=== PATIENT | female | born 1990 | race Caucasian/White ===

== ENCOUNTER → 2017-05-25 13:54 | Outpatient (CLI) | payer BC, SELFPAY ==
[2017-05-29 12:01] LABS: HPV Reflexed? NOT INDICATED
== END ==
PROVIDERS: Family Provider Family Medicine; PCP Family Medicine; Visit Provider Obstetrics & Gynecology
DX: Z12.4 Encounter for screening for malignant neoplasm of cervix (principal)
CPT/HCPCS: 88175; G0145

== ENCOUNTER 2019-12-14 12:23 | Outpatient (RCR) | payer BC, SELFPAY ==
[2019-03-18 16:30] VITALS: BMI 25.4
== END 2019-12-28 23:59 ==
LOC: EMPH 12:23
PROVIDERS: PCP Family Medicine; Visit Provider Family Medicine Geriatric Medicine
DX: Z11.59 Encounter for screening for other viral diseases (principal)
CPT/HCPCS: 87635; U0003

== ENCOUNTER 2020-01-26 08:48 | Outpatient (RCR) | payer BC, SELFPAY ==
[2019-03-18 16:30] VITALS: BMI 25.4
== END 2020-01-28 23:59 ==
LOC: EMPH 08:48
PROVIDERS: PCP Family Medicine; Referring Provider Family Medicine Geriatric Medicine; Visit Provider Family Medicine Geriatric Medicine
DX: Z03.818 Encounter for observation for suspected exposure to other biological agents ruled out (principal)
CPT/HCPCS: 87426

== ENCOUNTER 2020-02-22 09:31 | Outpatient (RCR) | payer BC, SELFPAY ==
[2019-03-18 16:30] VITALS: BMI 25.4
== END 2020-02-27 23:59 ==
LOC: EMPH 09:31
PROVIDERS: PCP Family Medicine; Referring Provider Family Medicine Geriatric Medicine; Visit Provider Family Medicine Geriatric Medicine
DX: Z03.818 Encounter for observation for suspected exposure to other biological agents ruled out (principal)
CPT/HCPCS: 87426

== ENCOUNTER 2020-03-28 14:07 | Outpatient (RCR) | payer BC, SELFPAY ==
[2019-03-18 16:30] VITALS: BMI 25.4
== END 2020-03-29 23:59 ==
LOC: EMPH 14:07
PROVIDERS: PCP Family Medicine; Referring Provider Family Medicine Geriatric Medicine; Visit Provider Family Medicine Geriatric Medicine
DX: Z03.818 Encounter for observation for suspected exposure to other biological agents ruled out (principal)
CPT/HCPCS: 87426

== ENCOUNTER 2020-04-18 12:29 | Outpatient (RCR) | payer BC, SELFPAY ==
[2019-03-18 16:30] VITALS: BMI 25.4
== END 2020-04-29 23:59 ==
LOC: EMPH 12:29
PROVIDERS: PCP Family Medicine; Referring Provider Family Medicine Geriatric Medicine; Visit Provider Family Medicine Geriatric Medicine
DX: Z03.818 Encounter for observation for suspected exposure to other biological agents ruled out (principal)
CPT/HCPCS: 87426

== ENCOUNTER 2020-05-25 09:48 | Outpatient (RCR) | payer BC, SELFPAY ==
[2019-03-18 16:30] VITALS: BMI 25.4
== END 2020-05-27 23:59 ==
LOC: EMPH 09:48
PROVIDERS: PCP Family Medicine; Referring Provider Family Medicine Geriatric Medicine; Visit Provider Family Medicine Geriatric Medicine
DX: Z03.818 Encounter for observation for suspected exposure to other biological agents ruled out (principal)
CPT/HCPCS: 87426

== ENCOUNTER 2020-06-20 09:41 | Outpatient (RCR) | payer BC, SELFPAY ==
[2019-03-18 16:30] VITALS: BMI 25.4
== END 2020-06-27 23:59 ==
LOC: EMPH 09:41
PROVIDERS: PCP Family Medicine; Referring Provider Family Medicine Geriatric Medicine; Visit Provider Family Medicine Geriatric Medicine
DX: Z03.818 Encounter for observation for suspected exposure to other biological agents ruled out (principal)
CPT/HCPCS: 87426

== ENCOUNTER 2020-07-20 10:35 | Outpatient (RCR) | payer BC, SELFPAY ==
[2019-03-18 16:30] VITALS: BMI 25.4
== END 2020-07-27 23:59 ==
LOC: EMPH 10:35
PROVIDERS: PCP Family Medicine; Referring Provider Family Medicine Geriatric Medicine; Visit Provider Family Medicine Geriatric Medicine
DX: Z03.818 Encounter for observation for suspected exposure to other biological agents ruled out (principal)
CPT/HCPCS: 87426

== ENCOUNTER 2020-08-23 10:30 | Outpatient (RCR) | payer BC, SELFPAY ==
[2019-03-18 16:30] VITALS: BMI 25.4
== END 2020-08-27 23:59 ==
LOC: EMPH 10:30
PROVIDERS: PCP Family Medicine; Referring Provider Family Medicine Geriatric Medicine; Visit Provider Family Medicine Geriatric Medicine
DX: Z03.818 Encounter for observation for suspected exposure to other biological agents ruled out (principal)
CPT/HCPCS: 87426

== ENCOUNTER 2020-09-26 14:02 | Outpatient (RCR) | payer BC, SELFPAY ==
[2019-03-18 16:30] VITALS: BMI 25.4
== END 2020-09-26 23:59 ==
LOC: EMPH 14:02
PROVIDERS: PCP Family Medicine; Referring Provider Family Medicine Geriatric Medicine; Visit Provider Family Medicine Geriatric Medicine
DX: Z03.818 Encounter for observation for suspected exposure to other biological agents ruled out (principal)
CPT/HCPCS: 87426

== ENCOUNTER 2020-10-19 10:43 | Outpatient (RCR) | payer BC, SELFPAY ==
[2019-03-18 16:30] VITALS: BMI 25.4
== END 2020-10-27 23:59 ==
LOC: EMPH 10:43
PROVIDERS: PCP Family Medicine; Referring Provider Family Medicine Geriatric Medicine; Visit Provider Family Medicine Geriatric Medicine
DX: Z03.818 Encounter for observation for suspected exposure to other biological agents ruled out (principal)
CPT/HCPCS: 87426

== ENCOUNTER → 2020-10-31 08:02 | Outpatient (CLI) | payer BC, SELFPAY ==
[2019-03-18 16:30] VITALS: BMI 25.4
--- NOTE | 2020-10-31 08:06 | US_ITS ---
EXAM: US ABDOMEN LIMITED, RIGHT UPPER QUADRANT CLINICAL INDICATION: ABD PAIN RUQ TECHNIQUE: Real-time ultrasound of the right upper quadrant with image documentation. This report was created using [employer] report generation technology. COMPARISON: None. FINDINGS: LIVER: Unremarkable. There is normal echotexture. No focal hepatic lesion. No intrahepatic biliary ductal dilation. GALLBLADDER: Unremarkable. No shadowing gallstone. No gallbladder wall thickening is demonstrated. No pericholecystic fluid. Negative sonographic Benson''s sign. COMMON BILE DUCT: Unremarkable as visualized. The proximal common bile duct is within normal limits for the patient''s age. PANCREAS: Unremarkable as visualized. No focal abnormality is demonstrated in the pancreas. No pancreatic ductal dilatation. RIGHT KIDNEY: Unremarkable. There is no hydronephrosis. No shadowing calculus. No focal lesion or perinephric collection is demonstrated. US/Abdomen Limited IMPRESSION: Normal right upper quadrant ultrasound. Electronically Signed: Jose Fernandez MD ([place]) at 8:38 EDT , Service support ,
== END ==
PROVIDERS: PCP Family Medicine; Referring Provider Family Medicine; Visit Provider Family Medicine
DX: R10.11 Right upper quadrant pain (principal)
CPT/HCPCS: 76705

== ENCOUNTER → 2020-11-18 | Outpatient (CLI) | payer BC, SELFPAY | END | disposition home or self-care (01) | LOC: LABSPEC 20:30 | PROVIDERS: PCP Family Medicine | DX: Z20.822 Contact with and (suspected) exposure to COVID-19 (principal) | CPT/HCPCS: 87635; U0005; U0003 ==

== ENCOUNTER 2020-11-27 12:24 | Outpatient (RCR) | payer BC, SELFPAY ==
[2019-03-18 16:30] VITALS: BMI 25.4
== END 2020-11-27 23:59 ==
LOC: EMPH 12:24
PROVIDERS: PCP Family Medicine; Referring Provider Family Medicine Geriatric Medicine; Visit Provider Family Medicine Geriatric Medicine
DX: Z03.818 Encounter for observation for suspected exposure to other biological agents ruled out (principal)
CPT/HCPCS: 87426

== ENCOUNTER 2020-12-27 13:10 | Outpatient (RCR) | payer BC, SELFPAY ==
[2020-11-28 00:28] VITALS: BMI 25.4
== END 2020-12-27 23:59 ==
LOC: EMPH 13:10
PROVIDERS: PCP Family Medicine; Referring Provider Family Medicine Geriatric Medicine; Visit Provider Family Medicine Geriatric Medicine
DX: Z03.818 Encounter for observation for suspected exposure to other biological agents ruled out (principal)
CPT/HCPCS: 87426

== ENCOUNTER 2021-01-17 13:55 | Outpatient (RCR) | payer BC, SELFPAY ==
[2020-12-28 00:23] VITALS: BMI 25.4
== END 2021-01-27 23:59 ==
LOC: EMPH 13:55
PROVIDERS: PCP Family Medicine; Referring Provider Family Medicine Geriatric Medicine; Visit Provider Family Medicine Geriatric Medicine
DX: Z03.818 Encounter for observation for suspected exposure to other biological agents ruled out (principal)
CPT/HCPCS: 87426

== ENCOUNTER → 2021-02-12 | Outpatient (CLI) | payer BC, SELFPAY ==
[2021-02-19 16:00] LABS: HPV Reflexed? NOT INDICATED
== END | disposition home or self-care (01) ==
PROVIDERS: PCP Family Medicine; Visit Provider Registered Nurse
DX: Z12.4 Encounter for screening for malignant neoplasm of cervix (principal)
CPT/HCPCS: 88175; G0145

== ENCOUNTER 2021-02-18 16:49 | Outpatient (RCR) | payer BC, SELFPAY ==
[2021-01-28 00:19] VITALS: BMI 25.4
== END 2021-02-26 23:59 ==
LOC: EMPH 16:49
PROVIDERS: PCP Family Medicine; Referring Provider Family Medicine Geriatric Medicine; Visit Provider Family Medicine Geriatric Medicine
DX: Z03.818 Encounter for observation for suspected exposure to other biological agents ruled out (principal)
CPT/HCPCS: 87426

== ENCOUNTER 2021-03-28 12:37 | Outpatient (RCR) | payer BC, SELFPAY ==
[2021-02-27 00:24] VITALS: BMI 25.4
== END 2021-03-29 23:59 ==
LOC: EMPH 12:37
PROVIDERS: PCP Family Medicine; Referring Provider Family Medicine Geriatric Medicine; Visit Provider Family Medicine Geriatric Medicine
DX: Z03.818 Encounter for observation for suspected exposure to other biological agents ruled out (principal)
CPT/HCPCS: 87426; 87635; U0003; U0005

== ENCOUNTER 2021-04-04 08:37 | Outpatient (RCR) | payer SELFPAY ==
[2021-03-30 00:23] VITALS: BMI 25.4
== END 2021-04-29 23:59 ==
LOC: EMPH 08:37
PROVIDERS: PCP Family Medicine; Referring Provider Family Medicine Geriatric Medicine; Visit Provider Family Medicine Geriatric Medicine
DX: Z03.818 Encounter for observation for suspected exposure to other biological agents ruled out (principal)
CPT/HCPCS: 87426

== ENCOUNTER 2021-04-16 09:54 | Outpatient (CLI) | payer OTHER, SELFPAY | END 2021-04-16 23:59 | disposition short-term general hospital (02) | PROVIDERS: PCP Family Medicine; Referring Provider Family Medicine; Visit Provider Family Medicine | DX: U07.1 COVID-19 (principal) | CPT/HCPCS: 87635; U0003; U0005 ==

== ENCOUNTER → 2023-12-28 | Outpatient (CLI) | payer OTHER, SELFPAY ==
[2024-01-05 09:09] LABS: HPV APTIMA, High Risk Negative (Negative)
== END | disposition home or self-care (01) ==
PROVIDERS: PCP Family Medicine; Referring Provider Nurse Practitioner Women's Health; Visit Provider Nurse Practitioner Women's Health
DX: Z12.4 Encounter for screening for malignant neoplasm of cervix (principal)
CPT/HCPCS: 87624; 88175; G0145

== ENCOUNTER → 2023-12-31 | Outpatient (CLI) | payer OTHER, SELFPAY ==
[2023-12-31 10:48] LABS: Cholesterol 198 mg/dL (200); Glucose 96 mg/dL (74-106); High Density Lipoprotein 57 mg/dL; T4 Free Direct 0.87 ng/dL (0.76-1.46); Triglycerides 84 mg/dL; Very Low Density Lipoprotein 17 mg/dL (5-40)
[2024-01-01 04:08] LABS: Thyroid Peroxidase AB < 9 IU/mL (0-34)
== END | disposition home or self-care (01) ==
LOC: PAVLAB 07:50
PROVIDERS: PCP Family Medicine; Referring Provider Nurse Practitioner Women's Health; Visit Provider Nurse Practitioner Women's Health
DX: Z13.220 Encounter for screening for lipoid disorders (principal); L65.9 Nonscarring hair loss, unspecified; Z13.21 Encounter for screening for nutritional disorder; Z13.1 Encounter for screening for diabetes mellitus; Z13.29 Encounter for screening for other suspected endocrine disorder
CPT/HCPCS: 36415; 80061; 82306; 82947; 84439; 84443; 86376

== ENCOUNTER → 2024-08-09 | Outpatient (CLI) | payer BC, SELFPAY ==
[2024-08-09 18:09] LABS: Hematocrit 35.5 % (37-47); Hemoglobin 12.1 g/dL (12.0-15.0); Mean Corp Hgb Conc 34.1 g/dL (32-36); Mean Corpuscular Hgb 30.8 pg (27.0-32.0); Mean Corpuscular Volume 90.3 fL (81-99); Mean Platelet Vol. 10.6 fl (6.2-12.0); Platelet Count 266 K/mm3 (150-450); RBC Distribution Width CV 12.8 % (11.6-14.6); RBC Distribution Width SD 42.5 fl (35.1-43.9); Red Blood Count 3.93 M/mm3 (4.2-5.4); White Blood Count 9.9 K/mm3 (4.4-11.0)
[2024-08-09 18:44] LABS: Erythrocyte Sedimentation Rate 6 mm/hr (0-30)
[2024-08-09 19:30] LABS: ALB/GLOB Ratio 1.4 RATIO (0.9-2.4); AST(SGOT) 19 U/L (<=31); Alanine Aminotransfer ALT/SGPT 13 U/L (<=34); Albumin, Serum 4.2 g/dL (3.5-5.0); Alkaline Phosphatase 61 U/L (35-104); Anion Gap 13 (5-15); BUN 14 mg/dL (4-19); Calcium,Total 8.9 mg/dL (7.6-11.0); Carbon Dioxide 21.1 mmol/L (21.0-32.0); Chloride 101 mmol/L (98-108); Creatinine, Serum 0.95 mg/dL (0.70-1.20); EST Glomerular Filtration Rate 80 (>60); Glucose 97 mg/dL (70-99); Iron 62 ug/dL (50-170); Magnesium 1.9 mg/dL (1.5-2.2); Potassium 3.2 mmol/L (3.3-5.1); Protein, Total 7.2 g/dL (5.9-8.4); Sodium Level 135 mmol/L (133-145); Total Bilirubin 0.33 mg/dL (0.00-1.30)
[2024-08-09 19:31] LABS: Ferritin 161 ng/mL (22-378); Thyroid Stim Hormone (TSH) 0.882 uIU/mL (0.300-4.200); Vitamin B12 330 pg/mL (180-914); Vitamin D,25 Hydroxy 32.6 ng/mL (30-100)
== END | disposition home or self-care (01) ==
LOC: MTLAB 15:56
PROVIDERS: PCP Family Medicine; Referring Provider Family Medicine; Visit Provider Family Medicine
DX: D64.9 Anemia, unspecified (principal); R53.83 Other fatigue; R25.2 Cramp and spasm
CPT/HCPCS: 36415; 80053; 82306; 82607; 82728; 83540; 83735; 84443; 85027; 85652